=== PATIENT | female | born 1970 | race Caucasian/White ===

== ENCOUNTER 2022-11-23 14:56 | Outpatient (CLI) | payer BC, SELFPAY ==
[2022-11-23 15:03] VITALS: BP 144/96; PULSE 76; RESP 20; TEMP 36.5; O2SAT 95
[2022-11-23 15:43] VITALS: BP 149/89; PULSE 77; RESP 17; O2SAT 99
--- NOTE | 2022-11-23 15:45 | DI.RAD_ITS ---
Exam(s) XR PAIN CLINIC SACRIOILIAC 2V EXAM: XR PAIN CLINIC SACRIOILIAC 2V CLINICAL HISTORY: Dx: Sacroiliac Joint Dysfunction TECHNIQUE: 2D and realtime digital imaging was performed. CONTRAST MATERIAL: Refer to procedure report. COMPARISON: No exams were available for comparison FINDINGS: Fluoroscopy was provided for Dr. Vega during the performance of a sacroiliac joint injection. Burke rae refer to the procedure report for complete details. Ka,r=2.58 mGy IMPRESSION:
[2022-11-23] MEDS: Omnipaque 240 MG/ML 50 ML BTL IJ (15:51)
[2022-11-23] MEDS: methylPREDNISolone ACETATE 80 MG/ML VIAL IJ (15:52)
--- NOTE | 2022-11-23 15:53 | PDOC.PAIN ---
Date of service: 11/23/22 Time of Service: 15:53 Pain Managment Procedure Note Procedure Note Procedure Note: PROCEDURE NOTE RIGHT INTRA-ARTICULAR SACROILIAC JOINT INJECTION Date of Service: November 23, 2022 Patient: RALPH ROGER Provider: Ridge Vega DO, MPH COMMENTS: I previously evaluated the patient in the office and their symptoms in relation to the sacroiliac joint pain have remained the same. Pre-operative diagnosis: Sacroiliac joint dysfunction Post-operative diagnosis: Same Pre-procedure pain: VAS= 6/10 RALPH ROGER has been referred to our [facility] for a Right intra-articular Sacroiliac joint injection. RALPH was interviewed and the medical record reviewed. There were no medical, pharmacologic, radiographic or other structural contraindications to attempting a fluoroscopically-guided, contrast-enhanced, intra-articular Sacroiliac joint injection. The risks, benefits, and potential side effects of this procedure were reviewed with the patient. Questions and concerns were addressed. After it was clear that RALPH was fully informed about the procedure, the printed consent form was signed by the patient and myself. RALPH was placed in the prone position on the fluoroscopy table and an automated blood pressure cuff, 3 lead EKG, and pulse oximeter were applied. The skin entry point for approaching the Right sacroiliac joint was identified under the most advantageous fluoroscopic view and marked. Following thorough Chlorhexadine preparation of the skin and draping with sterile surgical drapes, 2 mls of 1% lidocaine was infiltrated into the skin at the entry point and the surrounding subcutaneous tissues. Next, a 3.5 22G spinal needle was placed under fluoroscopic guidance into the Right sacroiliac joint. Intra-articular placement was confirmed by a clear arthrogram resulting from the injection of 0.25ml of Omnipaque-240. Next, 1 ml of Depo- Medrol 80 mg/ml was injected intra-articularly with an initial reproduction of a significant component of the usual pain. This was followed with 1 ml of 1% Lidocaine. The needle was then removed without difficulty. (49 ml of Omnipaque-240 was wasted). KRZYSZTOFs vital signs were stable throughout the procedure and were as recorded in nursing records. Follow up plans and appointments were discussed with RALPH. Post procedure instructions were given as documented in nursing records. Having met discharge criteria, RALPH was [facility] from the [facility]. COMMENTS: Post-procedure pain: VAS= 1/10. If the patient receives at least 50% improvement in pain and/or function for at least 3 months, this procedure can be repeated if needed. I personally performed this entire procedure. RIDGE VEGA DO, MPH ABPMR-subspecialty board certification in Pain Medicine [facility] [facility]
== END 2022-11-23 14:57 | disposition home or self-care (01) ==
LOC: PC 14:57
PROVIDERS: PCP Family Medicine; Visit Provider Preventive Medicine Occupational Medicine
DX: M46.1 Sacroiliitis, not elsewhere classified (principal)
CPT/HCPCS: 27096; 72200; J1040; Q9967

== ENCOUNTER 2023-03-29 15:29 | Outpatient (CLI) | payer BC, SELFPAY ==
--- NOTE | 2023-03-29 06:00 | DI.RAD_ITS ---
Exam(s) XR PAIN CLINIC LUMBAR SP 2V EXAM: XR PAIN CLINIC LUMBAR SP 2V CLINICAL HISTORY: Dx: Lumbar Radiculopathy TECHNIQUE: 2D and realtime digital imaging was performed. Radiologist not present. CONTRAST MATERIAL: None. COMPARISON: No exams were available for comparison FINDINGS: Fluoroscopy was provided for pain management therapy. Please refer to procedure report or details. Radiation Exposure Index: Ka,r=5.7 mGy IMPRESSION: As above. RADIATION DOSE DELIVERED:
[2023-03-29 15:43] VITALS: BP 149/95; PULSE 77; RESP 20; TEMP 36.7; O2SAT 96
[2023-03-29] MEDS: methylPREDNISolone ACETATE 80 MG/ML VIAL IJ (16:17)
[2023-03-29] MEDS: Omnipaque 240 MG/ML 50 ML BTL IJ (16:18)
--- NOTE | 2023-03-29 16:23 | PDOC.PAIN_ITS ---
Date of service: 03/29/23 Time of Service: 16:23 Pain Managment Procedure Note Procedure Note Procedure Note: PROCEDURE NOTE LUMBAR EPIDURAL STEROID INJECTION Date of Service: March 29, 2023 Patient:RALPH LAMAR? Provider: Ridge Vega DO, MPH RALPH ROGER has been referred to the [facility] for a lumbar epidural steroid injection. Pre-operative diagnosis: Lumbosacral Radiculopathy Post-operative diagnosis: Same Pre-Procedure Pain: VAS= 9 /10 Comments: I previously evaluated her in the clinic. RALPH was interviewed and the medical record was reviewed.? There were no medical, pharmacologic, radiographic or other structural contraindications to attempting fluoroscopically guided Lumbar epidural steroid injection.? Risks, potential side effects, indications, and potential benefits of the procedure were reviewed with RALPH.? Questions and concerns were addressed.? After it was clear that RALPH was fully informed about the procedure, the printed consent form was signed by the patient and myself.? RALPH was placed in the prone position on the fluoroscopy table and automated blood pressure cuff and pulse oximeter applied. The skin entry point for entering/approaching the epidural space for the lumbar epidural steroid injection was marked. Following thorough chlorhexadine preparation of the skin and draping and 1% lidocaine infiltration of the skin entry point and subcutaneous tissues, an 18 gauge Touhy needle was placed and advanced under fluoroscopic guidance and with loss of resistance technique into the L5-S1 epidural space. Needle tip placement and depth were aided and confirmed by fluoroscopy. There was no paresthesia or return of blood or CSF through the needle. 1 mls of Omnipaque 240 was injected with clear epidural spread confirmed with fluoroscopy. 80 mg of Depo-Medrol was? injected. This was followed by 1 ml of preservative-free normal saline to flush the steroid out of the needle. There was no unusual discomfort expressed by RALPH. The needle was withdrawn without difficulty. (49 mls of Omnipaque was wasted) RALPH was observed and was without hemodynamic, neurologic, or allergic reactions.? Fluoroscopic images were digitally archived. KRZYSZTOFs vital signs were stable throughout the procedure and were as recorded in nursing records. Follow up plans and appointments were discussed with RALPH. Post procedure instruction was given as documented in nursing records and having met discharge criteria RALPH was discharged from the [facility]. COMMENTS: No apparent complications. Post-procedure pain: VAS= 8/10. RALPH to contact [facility] as needed. If at least 50% improvement in pain and/or function for at least 3 months is achieved, this procedure can be repeated. She is pending a spine surgery evaluation. I personally performed this entire procedure. RIDGE VEGA DO, MPH ABPMR-subspecialty board certification in Pain Medicine [facility]
[2023-03-29 16:24] VITALS: BP 154/97; PULSE 79; RESP 16; O2SAT 98
== END 2023-03-29 15:30 | disposition home or self-care (01) ==
LOC: PC 15:29
PROVIDERS: PCP Family Medicine; Visit Provider Preventive Medicine Occupational Medicine
DX: M54.17 Radiculopathy, lumbosacral region (principal)
CPT/HCPCS: 00123; 62323; 72100; J1040; Q9967